=== PATIENT | male | born 1960 | race Caucasian/White ===

== ENCOUNTER 2019-06-28 18:24 | Emergency (ER) | payer MEDICAID ==
[~2019-06-28] VITALS: Ht 175.3 cm; Wt 99.2 kg
[~2019-06-28 18:24] MED LIST: IBUP-1984 PO; NO HOME MEDS
[2019-06-28 18:36] VITALS: BP 162/78
== END 2019-06-28 19:18 | disposition left against medical advice (07) ==
LOC: ER 18:25
DX: M79.605 Pain in left leg (principal); M79.604 Pain in right leg; Z53.21 Procedure and treatment not carried out due to patient leaving prior to being seen by health care provider

== ENCOUNTER 2023-07-29 21:20 | Emergency (ER) | payer MEDICAID ==
[~2023-07-29] VITALS: Ht 175.3 cm; Wt 84.8 kg
[2023-07-29 21:35] VITALS: BP 178/95; PULSE 90; RESP 16; TEMP 97.8; O2SAT 98
--- NOTE | 2023-07-29 23:51 | NUR ---
NOT IN LOBBY 1ST CALL
--- NOTE | 2023-07-30 00:03 | NUR ---
NOT IN LOBBY / OUTSIDE 2ND CALL
== END 2023-07-30 00:14 | disposition left against medical advice (07) ==
LOC: ER 21:21
DX: R21 Rash and other nonspecific skin eruption (principal); Z53.21 Procedure and treatment not carried out due to patient leaving prior to being seen by health care provider
CPT/HCPCS: 99281

== ENCOUNTER 2025-01-27 10:53 | Emergency (ER) | payer MEDICARE, MEDICAID ==
[~2025-01-27] VITALS: Ht 175.3 cm; Wt 91.9 kg
[2025-01-27] MEDS ORDERED: SULF1TAB49 PO (13:07)
[2025-01-27 13:10] VITALS: BP 141/92; PULSE 69; RESP 16; TEMP 97.7; O2SAT 98
== END 2025-01-27 13:13 | disposition home or self-care (01) ==
LOC: ER 10:53
DX: T81.49XA Infection following a procedure, other surgical site, initial encounter (principal); L03.114 Cellulitis of left upper limb; B95.62 Methicillin resistant Staphylococcus aureus infection as the cause of diseases classified elsewhere; E78.00 Pure hypercholesterolemia, unspecified; Z88.5 Allergy status to narcotic agent; Y92.89 Other specified places as the place of occurrence of the external cause
CPT/HCPCS: 87070; 87077; 87186; 99283